=== PATIENT | female | born 1980 | race Caucasian/White ===

== ENCOUNTER 2017-01-17 10:22 | Emergency (ER) | payer OTHER ==
--- NOTE | ~2017-01-17 | CR169 ---
[facility]. [facility] A Service of [facility] & [facility] RADIOLOGY TEXT RESULTS PATIENT: GILMER MORGAN LOCATION: SED : 84 UNIT #: [id number] AGE: [address]: BRAVO BENOIT SEX: F ORDER DR: [id number] [address] [address] [id number] E MR#: [id number] Acc #: [id number] NAME: GILMER MORGAN : 1980 SEX: F STUDY DATE/TIME: 01/17/2017 11:25 UNIT: SED ROOM: STUDY DESCRIPTION: CR Knee 2 Views Lt Attending Physician: (Uri) Bravo Benoit Ordering Physician: (Uri) Bravo Benoit Primary Care Physician: No Primary Care Physician MEDICAL IMAGING REPORT This report is preliminary unless electronic signature is present. EXAM Left knee series, 01/17/2017. HISTORY Posterior thigh/knee pain. [place] a pop in left knee while walking, now left knee pain. FINDINGS AP and lateral radiographs of the left knee are presented. No traumatic fracture or malalignment. The joint spaces are intact. There is no joint effusion. There is no soft tissue defect, subcutaneous air or radiodense foreign body. Patient has persistent symptoms and it would assist in management, the knee could be further assessed with elective MRI. Dictated by... Orlando Laurent M.D. THIS IS AN ELECTRONICALLY VERIFIED REPORT Orlando Laurent M.D. at 01/18/2017 9:43 PM LEELEE/umair TD: 01/17/2017 16:56 JOB #: [id number] MEDICAL IMAGING REPORT Page 1 of 1
--- NOTE | ~2017-01-17 | US85 ---
[facility] A Service of [facility] & [facility] RADIOLOGY TEXT RESULTS PATIENT: GILMER MORGAN LOCATION: SED : 84 UNIT #: [id number] AGE: [address]: BRAVO RAMIRES SEX: F ORDER DR: [id number] [address] [address] [id number] E MR#: [id number] Acc #: [id number] NAME: GILMER MORGAN : 1980 SEX: F STUDY DATE/TIME: 01/17/2017 11:13 UNIT: SED ROOM: STUDY DESCRIPTION: LE Veins Unilat or Ltd Stdy Attending Physician: Bravo Ramires Ordering Physician: Staff Doctor Not On Primary Care Physician: No Primary Care Physician MEDICAL IMAGING REPORT This report is preliminary unless electronic signature is present. EXAM Left lower extremity venous Doppler INDICATION Swelling and pain in the left lower extremity for 5 days. TECHNIQUE Morgan-scale, color Doppler, and spectral Doppler waveform analysis was performed through the patient's left lower extremity. FINDINGS The examination is negative. There is no evidence of left lower extremity deep venous thrombus from the groin to the lower calf. Visualized greater saphenous vein is also patent. IMPRESSION Negative. Dictated by... Danielle Galloway M.D. THIS IS AN ELECTRONICALLY VERIFIED REPORT Danielle Galloway M.D. at 01/17/2017 4:56 PM AFF/aa TD: 01/17/2017 15:22 JOB #: [id number] MEDICAL IMAGING REPORT Page 1 of 1
[~2017-01-17 10:22] MED LIST: LORTAB 101 TAB 10/5 PO; NAPROSYN500 MG PO; PERCOCET 5-3251 TAB PO; PERCOCET5/325 PO
[2017-01-17] MEDS ORDERED: NO MEDICATIONS (10:30)
== END 2017-01-17 13:58 | disposition home or self-care (01) ==
LOC: SED 10:22
DX: M25.562 Pain in left knee (principal); F17.200 Nicotine dependence, unspecified, uncomplicated; Z98.890 Other specified postprocedural states; Z88.0 Allergy status to penicillin; Z88.1 Allergy status to other antibiotic agents
CPT/HCPCS: 29530; 73560; 93971; 99284